=== PATIENT | female | born 1980 | race Asian ===

== ENCOUNTER → 2025-02-25 | Outpatient (CLI) | payer OTHER, MEDICARE ==
--- NOTE | 2025-02-25 17:59 | HMCIMG ---
EXAM: MR LEFT HIP WITHOUT CONTRAST CLINICAL HISTORY: left hip pain TECHNIQUE: Multiplanar multisequence magnetic resonance images were obtained WITHOUT contrast. CONTRAST: None COMPARISON: None FINDINGS: JOINTS: Small left hip joint effusion seen. No dislocation. BONE: No acute fracture or focal osseous lesion. SOFT TISSUES: Grade 2 strain of the left side adductor Eduard muscle is seen. Grade 1 and grade 2 strains of the gluteus minimus and gluteus medius tendons and insertions on the greater tuberosity are seen. IMPRESSION: 1. Grade 2 strain of the left adductor Eduard muscle. 2. Grade 1 and grade 2 strains of the gluteus minimus and gluteus medius tendons and insertions on the greater tuberosity. 3. Small left hip joint effusion. No dislocation. /[place]
== END | disposition home or self-care (01) ==
LOC: RAH 13:49
PROVIDERS: ATTEND Student in an Organized Health Care Education/Training Program
DX: S76.012A Strain of muscle, fascia and tendon of left hip, initial encounter (principal); M25.552 Pain in left hip; M25.452 Effusion, left hip; X58.XXXA Exposure to other specified factors, initial encounter; Y93.89 Activity, other specified; Y92.89 Other specified places as the place of occurrence of the external cause; Y99.8 Other external cause status
CPT/HCPCS: 73721